=== PATIENT | female | born 1980 | race Caucasian/White ===

== ENCOUNTER → 2016-09-21 | Outpatient (REF) | payer OTHER ==
[~2016-09-21] MED LIST: /CIPR75TA; IBUP80TA PO; PERCOCET PO; TRAZ100T
== END ==
LOC: M LAB REF 12:46
PROVIDERS: ATTEND Specialist
DX: Z12.4 Encounter for screening for malignant neoplasm of cervix (principal)

== ENCOUNTER 2016-12-05 07:39 | Emergency (ER) | payer OTHER ==
[~2016-12-05] VITALS: Ht 157.5 cm; Wt 95.5 kg
[2016-12-05] MEDS ORDERED: CLINDAMYCIN 900 MG in APPROPRIATE DILUENT 1 EA IV ONE (08:30)
[2016-12-05] MEDS ORDERED: CLIN150C14 PO (08:53)
[2016-12-05 09:33] VITALS: BP 131/86
== END 2016-12-05 09:35 | disposition home or self-care (01) ==
LOC: M ED 07:39
DX: K04.7 Periapical abscess without sinus (principal); F17.210 Nicotine dependence, cigarettes, uncomplicated; Z91.040 Latex allergy status; Z88.0 Allergy status to penicillin

== ENCOUNTER 2016-12-06 09:15 | Emergency (ER) | payer OTHER ==
[~2016-12-06] VITALS: Ht 152.4 cm; Wt 95.5 kg
[~2016-12-06 09:15] MED LIST changes: +CLIN150C14 PO
[2016-12-06] MEDS ORDERED: CLINDAMYCIN 600 MG in APPROPRIATE DILUENT 1 EA IV ONE (09:30)
[2016-12-06 10:25] VITALS: BP 129/85
== END 2016-12-06 10:27 | disposition home or self-care (01) ==
LOC: M ED 09:15
DX: Z51.89 Encounter for other specified aftercare (principal); K04.7 Periapical abscess without sinus; F17.200 Nicotine dependence, unspecified, uncomplicated; Z91.040 Latex allergy status; Z88.0 Allergy status to penicillin

== ENCOUNTER 2016-12-15 11:54 | Emergency (ER) | payer OTHER ==
[~2016-12-15] VITALS: Ht 160 cm; Wt 95.4 kg
[2016-12-15 11:54] VITALS: BP 150/93
== END 2016-12-15 14:41 | disposition left against medical advice (07) ==
LOC: M ED 11:54
DX: K08.89 Other specified disorders of teeth and supporting structures (principal); Z53.29 Procedure and treatment not carried out because of patient's decision for other reasons

== ENCOUNTER 2017-06-01 08:47 | Emergency (ER) | payer OTHER | END 2017-06-01 09:54 | disposition home or self-care (01) | LOC: M ED 08:47 | DX: K04.7 Periapical abscess without sinus (principal); K02.9 Dental caries, unspecified; Z88.0 Allergy status to penicillin; Z91.040 Latex allergy status; F17.210 Nicotine dependence, cigarettes, uncomplicated | CPT/HCPCS: 99282 ==

== ENCOUNTER → 2018-11-14 | Outpatient (REF) | payer BC ==
[~2018-11-14] MED LIST changes: +CLEO300C2 PO; +IBUP-1022 PO
== END ==
LOC: M LAB REF 13:38
PROVIDERS: ATTEND Specialist
DX: Z12.4 Encounter for screening for malignant neoplasm of cervix (principal)

== ENCOUNTER 2024-05-02 21:29 | Emergency (ER) | payer OTHER ==
[~2024-05-02] VITALS: Ht 160 cm; Wt 113.1 kg
[~2024-05-02 21:29] MED LIST changes: -CLIN150C14 PO; +CLIN150C17 PO
[2024-05-03] MEDS ORDERED: METR-265 PO (00:56)
[2024-05-03] MEDS ORDERED: DOXY-441 PO (00:56)
[2024-05-03] MEDS: DOXYCYCLINE HYCLATE 100MG TABLET PO ONE (01:00)
[2024-05-03] MEDS: metroNIDAZOLE (FLAGYL) 500MG TABLET PO ONE (01:00)
[2024-05-03] MEDS: BOOSTRIX VACCINE (TETANUS/DIPHTH/ACEL. PERTUSSIS) 0.5ML SYR IM ONE (01:01)
[2024-05-03 01:11] VITALS: TEMP 97
[2024-05-03] MEDS ORDERED: PILL CUTTER 1 EACH XX ONE (01:27)
[2024-05-03 01:30] VITALS: BP 180/110
[2024-05-03] MEDS: **hydrALAZINE** 10 MG TAB PO ONE (01:30)
[2024-05-03 02:07] VITALS: O2SAT 98
[2024-05-03 02:28] VITALS: BP 176/100
== END 2024-05-03 02:27 | disposition home or self-care (01) ==
LOC: M ED 21:29
DX: S61.531A Puncture wound without foreign body of right wrist, initial encounter (principal); R03.0 Elevated blood-pressure reading, without diagnosis of hypertension; Y04.1XXA Assault by human bite, initial encounter; F32.A Depression, unspecified; Z91.040 Latex allergy status; Z88.0 Allergy status to penicillin; Z79.1 Long term (current) use of non-steroidal anti-inflammatories (NSAID); Z79.2 Long term (current) use of antibiotics; Z79.899 Other long term (current) drug therapy; Z23 Encounter for immunization; Y92.9 Unspecified place or not applicable; Y93.89 Activity, other specified; Y99.0 Civilian activity done for income or pay